=== PATIENT | female | born 1990 | race African-American/Black ===

== ENCOUNTER 2019-02-07 08:06 | Emergency (ER) | payer SELFPAY ==
[2019-02-07] MEDS ORDERED: Ondansetron ODT 8 MG TAB ONE (09:27)
[2019-02-07] MEDS ORDERED: Dicyclomine 20 MG TAB ONE (09:27)
== END 2019-02-07 09:31 | disposition home or self-care (01) ==
LOC: ERS 08:06
DX: R11.2 Nausea with vomiting, unspecified (principal); R19.7 Diarrhea, unspecified; F17.210 Nicotine dependence, cigarettes, uncomplicated
CPT/HCPCS: 99283

== ENCOUNTER 2019-07-27 12:45 | Emergency (ER) | payer SELFPAY ==
[2019-07-27] MEDS ORDERED: Ondansetron ODT 4 MG TAB ONE (15:24)
[2019-07-27 15:34] LABS: Bilirubin Negative (Negative); Blood, Urine Negative (Negative); Clarity Turbid (Clear); Glucose, Urine (Dipstick) Normal (Negative); Leukocyte Negative Leu/uL (Negative); Nitrite Negative (Negative); Protein, Urine (Dipstick) 20 mg/dL (Neg-Trace)
[2019-07-27 15:36] LABS: Pregnancy Test - Urine (BHCG) Negative (Negative); Pregu Control Background? CLEAR/WHITE (CLR/WHITE); Pregu Control Bar Appear? YES (CONTROL BAR); Specific Gravity 1.028 (1.002-1.036)
== END 2019-07-27 15:52 | disposition home or self-care (01) ==
LOC: ERS 12:45
DX: J02.9 Acute pharyngitis, unspecified (principal); R11.2 Nausea with vomiting, unspecified; F17.210 Nicotine dependence, cigarettes, uncomplicated
CPT/HCPCS: 81003; 81025; 87081; 87430; 99283; Q0162

== ENCOUNTER 2021-07-17 22:07 | Emergency (ER) | payer SELFPAY ==
[2021-07-17] MEDS ORDERED: Ondansetron PF 4 MG/2 ML Vial ONE (22:55)
[2021-07-17] MEDS ORDERED: Ondansetron ODT 4 MG TAB ONE (22:55)
[2021-07-18 13:56] LABS: SARS-CoV-2 PCR by NAA Not Detected (NotDetected)
== END 2021-07-17 23:00 | disposition home or self-care (01) ==
LOC: ERS 22:07
DX: R19.7 Diarrhea, unspecified (principal); Z20.822 Contact with and (suspected) exposure to COVID-19; F17.210 Nicotine dependence, cigarettes, uncomplicated
CPT/HCPCS: 99283; J2405; Q0162; U0003; U0005

== ENCOUNTER 2021-12-24 20:38 | Emergency (ER) | payer BC, SELFPAY | END 2021-12-24 21:32 | disposition home or self-care (01) | LOC: ERS 20:38 | DX: H65.92 Unspecified nonsuppurative otitis media, left ear (principal); H61.22 Impacted cerumen, left ear; F17.210 Nicotine dependence, cigarettes, uncomplicated | CPT/HCPCS: 99282 ==

== ENCOUNTER 2022-12-14 20:16 | Emergency (ER) | payer BC, SELFPAY ==
[2022-12-14] MEDS ORDERED: Fluorescein Opthalmic Strip ONE (22:21)
[2022-12-14] MEDS ORDERED: Proparacaine 0.5% Opth 15 ML BOT ONE (22:21)
== END 2022-12-15 00:34 | disposition home or self-care (01) ==
LOC: ERS 20:16
DX: H10.9 Unspecified conjunctivitis (principal); F17.210 Nicotine dependence, cigarettes, uncomplicated
CPT/HCPCS: 99282

== ENCOUNTER 2024-04-12 17:05 | Emergency (ER) | payer BC | END 2024-04-12 17:41 | disposition left against medical advice (07) | LOC: ERS 17:05 | DX: Z53.21 Procedure and treatment not carried out due to patient leaving prior to being seen by health care provider (principal) ==